=== PATIENT | female | born 1975 | race American Indian/Alaskan Native ===

== ENCOUNTER 2016-07-30 01:45 | Emergency (ER) | payer MEDICAID ==
[2016-07-30 02:12] VITALS: TEMP 97.6
--- NOTE | 2016-07-30 02:38 | C.PDOC ---
History Of Present Illness Patient is a 40 year old female who presents to the ER with a complaint of head pressure that began earlier today. Patient denies any chest pain or shortness of breath. Chief Complaint (Nursing): High Blood Pressure History Per: Patient History/Exam Limitations: no limitations Onset/Duration Of Symptoms: Hrs Current Symptoms Are (Timing): Still Present Associated Symptoms: denies: Chest Pain Past Medical History Reviewed: Historical Data, Nursing Documentation, Vital Signs Vital Signs: Last Vital Signs Temp 97.6 F 07/30/16 02:06 Pulse 84 07/30/16 02:06 Resp 18 07/30/16 02:06 BP 168/128 H 07/30/16 02:06 Pulse Ox 97 07/30/16 02:46 - Medical History PMH: Asthma (as a child she states), HTN, Hyperthyroidism (thyroidectomy) Family History: States: Unknown Family Hx - Social History Hx Tobacco Use: No Hx Alcohol Use: No Hx Substance Use: No - Immunization History Hx Tetanus Toxoid Vaccination: Yes Hx Influenza Vaccination: No Hx Pneumococcal Vaccination: No Review Of Systems Constitutional: Negative for: Fever, Chills Cardiovascular: Negative for: Chest Pain, Palpitations Respiratory: Negative for: Shortness of Breath Gastrointestinal: Negative for: Nausea, Vomiting Physical Exam - Physical Exam Appears: Well, Non-toxic Skin: Normal Color, Warm, Dry Head: Atraumatic, Normacephalic, Other (Head pressure) Eye(s): bilateral: Normal Inspection Oral Mucosa: Moist Neck: Normal, Normal ROM Cardiovascular: Rhythm Regular Respiratory: Normal Breath Sounds, No Accessory Muscle Use, No Rales, No Rhonchi , No Wheezing Gastrointestinal/Abdominal: Soft, No Tenderness, No Distention, No Guarding, No Rebound Neurological/Psych: Oriented x3, Normal Speech, Normal Cognition ED Course And Treatment ECG: Interpreted By Me (No st/t changes, no abnormalities), Viewed By Me ECG Rhythm: Sinus Rhythm (81) O2 Sat by Pulse Oximetry: 97 (Room air) Pulse Ox Interpretation: Normal Progress Note: EKG ordered and reviewed. Disposition - Disposition Referrals: [facility] [Outside] Disposition: HOME/ ROUTINE Disposition Time: 02:37 Condition: STABLE Instructions: Low Sodium Diet (ED), Hypertension (ED) - Clinical Impression Clinical Impression: Hypertension - Scribe Statement The provider has reviewed the documentation as recorded by the Scribe Daron Naik All medical record entries made by the Savanna were at my direction and personally dictated by me. I have reviewed the chart and agree that the record accurately reflects my personal performance of the history, physical exam, medical decision making, and the department course for this patient. I have also personally directed, reviewed, and agree with the discharge instructions and disposition.
--- NOTE | 2016-07-30 02:38 | C.PDOC ---
Chief Complaint (Nursing): High Blood Pressure Past Medical History Vital Signs: Last Vital Signs Temp 97.6 F 07/30/16 02:06 Pulse 84 07/30/16 02:06 Resp 18 07/30/16 02:06 BP 168/128 H 07/30/16 02:06 Pulse Ox 97 07/30/16 02:06 - Medical History PMH: Asthma (as a child she states), HTN, Hyperthyroidism (thyroidectomy) Denies: Chronic Kidney Disease Family History: States: Unknown Family Hx - Social History Hx Tobacco Use: No Hx Alcohol Use: No Hx Substance Use: No - Immunization History Hx Tetanus Toxoid Vaccination: Yes Hx Influenza Vaccination: No Hx Pneumococcal Vaccination: No ED Course And Treatment O2 Sat by Pulse Oximetry: 97 Disposition Counseled Patient/Family Regarding: Diagnosis - Disposition Referrals: at [facility] [Outside] Disposition: HOME/ ROUTINE Disposition Time: 02:37 Condition: STABLE Instructions: Hypertension (ED), Low Sodium Diet (ED) - POA Present On Arrival: None - Clinical Impression Clinical Impression: Hypertension
[2016-07-30 03:01] VITALS: BP 151/98; PULSE 96; RESP 16; O2SAT 98
--- NOTE | 2016-07-31 20:02 | CARD ---
APPROVED REPORT EKG Measurement Heart [id number] [place] 196P59 [id number] <Conclusion> Normal sinus rhythm Nonspecific T wave abnormality Abnormal ECG
== END 2016-07-30 03:59 | disposition home or self-care (01) ==
LOC: C.ER 01:45
DX: I10 Essential (primary) hypertension (principal)

== ENCOUNTER 2016-08-06 20:14 | Emergency (ER) | payer MEDICAID ==
[2016-08-06 20:28] VITALS: RESP 20
[2016-08-06 20:55] LABS: BASO # 0.1 K/uL (0.0-0.2); BASO % 1.3 % (0.0-2.0); EOS # 0.1 K/uL (0.0-0.7); EOS % 1.9 % (0.0-4.0); HEMATOCRIT 35.8 % (34.0-47.0); LYMPH # 1.9 K/uL (1.0-4.3); LYMPH % 38.4 % (20.0-40.0); MEAN CELL VOLUME 85.4 fL (81.0-99.0); MEAN CORPUSCULAR HEMOGLOBIN 28.6 pg (27.0-31.0); MEAN CORPUSCULAR HGB CONC 33.6 g/dL (33.0-37.0); MONO # 0.3 K/uL (0.0-0.8); MONO % 6.4 % (0.0-10.0); NRBC % 0.1 % (0.0-2.0); RED CELL DISTRIBUTION WIDTH 15.3 % (11.5-14.5); WHITE BLOOD COUNT 4.8 K/uL (4.8-10.8)
[2016-08-06 20:59] LABS: RBC URINE 2 /hpf (0-3); TRANSITIONAL EPITHIAL < 1 /hpf (0-3); URINE BACTERIA FEW (<OCC); URINE BILIRUBIN NEGATIVE (NEGATIVE); URINE BLOOD NEGATIVE (NEGATIVE); URINE COLOR Yellow (YELLOW); URINE GLUCOSE (UA) NORMAL (Normal); URINE KETONE NEGATIVE (NEGATIVE); URINE LEUKOCYTE ESTERASE 1+ Leu/uL (Negative); URINE PROTEIN 1+ mg/dL (NEGATIVE); URINE UROBILINOGEN NORMAL mg/dL (0.2-1.0); WBC URINE 16 /hpf (0-5)
[2016-08-06 21:29] LABS: CHLORIDE 95 mmol/L (98-107); SODIUM 138 mmol/L (132-148)
[2016-08-06 21:30] LABS: POTASSIUM 3.9 mmol/L (3.6-5.2)
[2016-08-06 21:32] LABS: ALB/GLOB RATIO 1.1 (1.0-2.1); ALKALINE PHOSPHATASE 54 U/L (38-126); AST/SGOT 57 U/L (14-36); BILIRUBIN,TOTAL 0.8 mg/dL (0.2-1.3); BLOOD UREA NITROGEN 9 mg/dL (7-17); CARBON DIOXIDE 29 mmol/L (22-30); GFR AFRICAN-AMERICAN 55; TOTAL PROTEIN 8.5 g/dL (6.3-8.3)
[2016-08-06 21:33] LABS: ALCOHOL SERUM < 10 mg/dl (0-10); ALT/SGPT 21 U/L (9-52); CALCIUM 8.4 mg/dl (8.6-10.4); GLUCOSE,RANDOM 92 mg/dL (65-105)
--- NOTE | 2016-08-06 22:10 | C.PDOC ---
History Of Present Illness 40 year old patient, with a history of hypertension, presents to the ED complaining of "hot flashes" for the past few hours prior to arrival. Patient denies any substance use, any new medications, chest pain, shortness of breath or vomiting. Time Seen by Provider: 08/06/16 20:26 Chief Complaint (Nursing): Dizziness/Lightheaded History Per: Patient History/Exam Limitations: no limitations Onset/Duration Of Symptoms: Hrs (few hours prior to arrival) Current Symptoms Are (Timing): Still Present Recent travel outside of the [place]: No Past Medical History Reviewed: Historical Data, Nursing Documentation, Vital Signs Vital Signs: Last Vital Signs Temp 97.9 F 08/06/16 22:20 Pulse 76 08/06/16 22:20 Resp 20 08/06/16 22:20 BP 121/77 08/06/16 22:20 Pulse Ox 98 08/06/16 22:20 - Medical History PMH: Asthma (as a child she states), HTN, Hyperthyroidism (thyroidectomy), Hypothyroidism (thyroidectomy 05/2016) Family History: States: Unknown Family Hx - Social History Hx Tobacco Use: No Hx Alcohol Use: No Hx Substance Use: No - Immunization History Hx Tetanus Toxoid Vaccination: Yes Hx Influenza Vaccination: No Hx Pneumococcal Vaccination: No Review Of Systems Except As Marked, All Systems Reviewed And Found Negative. Constitutional: Positive for: Other ("hot flashes") Cardiovascular: Negative for: Chest Pain Respiratory: Negative for: Shortness of Breath Gastrointestinal: Negative for: Vomiting Psych: Negative for: Suicidal ideation Physical Exam - Physical Exam Appears: Non-toxic, No Acute Distress, Other (flat affect, somnolent) Skin: Warm, Dry Head: Atraumatic, Normacephalic Neck: Normal ROM, Supple Chest: Symmetrical Cardiovascular: Rhythm Regular Respiratory: Normal Breath Sounds, No Rales, No Rhonchi, No Wheezing Gastrointestinal/Abdominal: Soft, No Tenderness Back: Normal Inspection, No CVA Tenderness Extremity: Normal ROM Neurological/Psych: Oriented x3 Gait: Steady ED Course And Treatment - Laboratory Results Result Diagrams: 08/06/16 20:49 08/06/16 20:49 Lab Interpretation: Normal (ua neg.) Urine POC: Negative ECG: Interpreted By Me ECG Rhythm: Sinus Rhythm ECG Interpretation: Normal Rate From EC (bpm) O2 Sat by Pulse Oximetry: 100 (RA) Pulse Ox Interpretation: Normal Progress Note: Plan: EKG, Labs Medical Decision Making Medical Decision Making: confusing presentation as pt has a myriad of complaints but asymptomatic on arrival similar presentations in the past. Though U-tox and ETOH there may be other non-detectable substances offering an altered sensorium. Disposition Doctor Will See Patient In The: Office Counseled Patient/Family Regarding: Studies Performed, Diagnosis - Disposition Referrals: Mikey Reed MD [Staff Provider] - Disposition: HOME/ ROUTINE Disposition Time: 22:09 Condition: GOOD Additional Instructions: follow-up as an outpatient with Dr. Reed as needed Normal workup today. Instructions: Fatigue (ED) - Clinical Impression Clinical Impression: Malaise and fatigue - Scribe Statement The provider has reviewed the documentation as recorded by the Scribe Floresita Bush Provider Attestation: All medical record entries made by the Scribe were at my direction and personally dictated by me. I have reviewed the chart and agree that the record accurately reflects my personal performance of the history, physical exam, medical decision making, and the department course for this patient. I have also personally directed, reviewed, and agree with the discharge instructions and disposition.
[2016-08-06 22:22] VITALS: BP 121/77; PULSE 76; TEMP 97.9
[2016-08-07 01:58] VITALS: O2SAT 100
== END 2016-08-06 22:50 | disposition home or self-care (01) ==
LOC: C.ER 20:14
DX: R53.81 Other malaise (principal); R53.83 Other fatigue

== ENCOUNTER 2016-08-09 22:42 | Emergency (ER) | payer MEDICAID ==
[2016-08-09] MEDS ORDERED: Sodium Chloride 0.9% 1,000 ML IV ONE (23:12)
--- NOTE | 2016-08-09 23:12 | C.PDOC ---
History Of Present Illness pt presents with some palpitations after eating rodriguez. Pt had thyroidectomy in May and just finished her radiation therapy end of June. Patient felle tired and lack of energy Time Seen by Provider: 08/09/16 23:11 Chief Complaint (Nursing): Palpitations History Per: Patient History/Exam Limitations: no limitations Onset/Duration Of Symptoms: Hrs Current Symptoms Are (Timing): Gone Associated Symptoms: Other (palpitations). denies: Chest Pain Quality Of Symptoms: Asymptomatic Severity: Mild Pain Scale Rating Of: 2 Exacerbating Factor(s): Pos: None Recent travel outside of the [place]: No Additional History Per: Patient Past Medical History Reviewed: Historical Data, Nursing Documentation, Vital Signs Vital Signs: Last Vital Signs Temp 98.3 F 08/10/16 04:02 Pulse 63 08/10/16 04:02 Resp 15 08/10/16 04:02 BP 129/85 08/10/16 04:02 Pulse Ox 96 08/10/16 04:02 - Medical History PMH: Asthma (as a child she states), HTN, Hyperthyroidism (thyroidectomy), Hypothyroidism (thyroidectomy 05/2016) Denies: Chronic Kidney Disease Family History: States: No Known Family Hx - Social History Hx Tobacco Use: No Hx Alcohol Use: No Hx Substance Use: No - Immunization History Hx Tetanus Toxoid Vaccination: Yes Hx Influenza Vaccination: No Hx Pneumococcal Vaccination: No Review Of Systems Constitutional: Negative for: Fever, Chills ENT: Negative for: Throat Pain Cardiovascular: Positive for: Palpitations. Negative for: Chest Pain Respiratory: Negative for: Shortness of Breath Gastrointestinal: Negative for: Nausea, Vomiting, Abdominal Pain Genitourinary: Negative for: Dysuria Musculoskeletal: Negative for: Back Pain Skin: Negative for: Rash, Lesions, Jaundice Neurological: Negative for: Weakness Psych: Negative for: Anxiety Physical Exam - Physical Exam Appears: Non-toxic, No Acute Distress Skin: Warm, Dry Eye(s): bilateral: Normal Inspection Oral Mucosa: Moist Neck: Supple Chest: Symmetrical Cardiovascular: Rhythm Regular Respiratory: No Rales, No Rhonchi, No Wheezing Gastrointestinal/Abdominal: Soft, No Tenderness, No Distention Back: Normal Inspection Extremity: Bilateral: Atraumatic, Normal Color And Temperature Neurological/Psych: Oriented x3, Normal Speech, Normal Cognition Gait: Steady ED Course And Treatment - Laboratory Results Result Diagrams: 08/09/16 23:32 08/09/16 23:32 ECG: Interpreted By Me, Viewed By Me ECG Rhythm: Sinus Rhythm (57), Nonspecific Changes O2 Sat by Pulse Oximetry: 97 Pulse Ox Interpretation: Normal Progress Note: blood work , ivf,. tsh Reevaluation Time: 04:53 Reassessment Condition: Improved Medical Decision Making Medical Decision Making: Upon provider reevaluation patient is feeling better, is medically stable, and requires no further treatment in the ED at this time. Patient will be discharged home . Counseling was provided and all questions were answered regarding diagnosis and need for follow up with Dr Reed and her check out cashier. There is agreement to discharge plan. Return if symptoms persist or worsen. Disposition Counseled Patient/Family Regarding: Studies Performed, Diagnosis, Need For Followup - Disposition Referrals: Mikey Reed MD [Staff Provider] - Disposition: HOME/ ROUTINE Disposition Time: 04:55 Condition: FAIR Instructions: Hypothyroidism (ED) - Clinical Impression Clinical Impression: Hypothyroid
[2016-08-09 23:35] LABS: EOS # 0.1 K/uL (0.0-0.7); EOS % 1.3 % (0.0-4.0); HEMATOCRIT 33.5 % (34.0-47.0); LYMPH # 1.4 K/uL (1.0-4.3); LYMPH % 33.5 % (20.0-40.0); MEAN CELL VOLUME 86.1 fL (81.0-99.0); MEAN CORPUSCULAR HGB CONC 32.5 g/dL (33.0-37.0); MEAN PLATELET VOLUME 7.8 fL (7.2-11.7); MONO # 0.3 K/uL (0.0-0.8); MONO % 7.2 % (0.0-10.0); RED CELL DISTRIBUTION WIDTH 15.7 % (11.5-14.5); WHITE BLOOD COUNT 4.1 K/uL (4.8-10.8)
[2016-08-09] MEDS ORDERED: Sodium Chloride 0.9% 1,000 ML ONE (23:35)
[2016-08-09 23:44] LABS: POTASSIUM 3.5 mmol/L (3.6-5.2)
[2016-08-09 23:46] LABS: ALB/GLOB RATIO 1.2 (1.0-2.1); BILIRUBIN,TOTAL 0.6 mg/dL (0.2-1.3); TOTAL PROTEIN 7.7 g/dL (6.3-8.3)
[2016-08-09 23:47] LABS: CALCIUM 8.1 mg/dl (8.6-10.4)
[2016-08-10 00:17] LABS: THYROID STIMULATING HORMONE 61.2 mIU/L (0.46-4.68)
[2016-08-10 04:55] VITALS: O2SAT 97
[2016-08-10] MEDS ORDERED: Levothyroxine 150 MCG TAB PO STA (06:18)
[2016-08-10 06:28] VITALS: BP 126/78; PULSE 71; RESP 14; TEMP 97.8
--- NOTE | 2016-08-11 06:27 | CARD ---
APPROVED REPORT EKG Measurement Heart [id number] [place] 182P6 [id number] <Conclusion> Sinus bradycardia Otherwise normal ECG
== END 2016-08-10 06:30 | disposition home or self-care (01) ==
LOC: C.ER 22:42
DX: E03.9 Hypothyroidism, unspecified (principal)
CPT/HCPCS: 80053; 84443; 85025; 93005; 96360; 99285; J7040

== ENCOUNTER 2017-05-18 00:02 | Emergency (ER) | payer MEDICAID ==
[2017-05-18 00:07] VITALS: BMI 34.2
--- NOTE | 2017-05-18 00:33 | C.PDOC ---
History Of Present Illness Patient presents to ED with complaints of shortness of breath and headache. Patient states she missed her thyroid medication. Patient denies fever, nausea, vomiting or diarrhea. Time Seen by Provider: 05/18/17 00:33 Chief Complaint (Nursing): Shortness Of Breath History Per: Patient History/Exam Limitations: no limitations Onset/Duration Of Symptoms: Hrs Current Symptoms Are (Timing): Still Present Quality: Other Current Respiratory Medications: See Home Med List Severity: None Associated Symptoms: Other (Shortness of breath and headache). denies: Fever, Chills, Chest Pain Reports Recently: Seen In ED, Treated By A Physician Recent travel outside of the [place]: No Additional History Per: Family Past Medical History Reviewed: Historical Data, Nursing Documentation, Vital Signs Vital Signs: Last Vital Signs Temp 97.6 F 05/18/17 00:14 Pulse 92 H 05/18/17 03:56 Resp 23 05/18/17 03:56 BP 146/93 H 05/18/17 03:56 Pulse Ox 98 05/18/17 03:56 - Medical History PMH: Asthma (as a child she states), HTN, Hyperthyroidism (thyroidectomy), Hypothyroidism (thyroidectomy 05/2016) Surgical History: No Surg Hx Family History: States: No Known Family Hx - Social History Hx Tobacco Use: No Hx Alcohol Use: No Hx Substance Use: No - Immunization History Hx Tetanus Toxoid Vaccination: Yes Hx Influenza Vaccination: No Hx Pneumococcal Vaccination: No Review Of Systems Constitutional: Negative for: Fever, Chills Respiratory: Positive for: Shortness of Breath Gastrointestinal: Negative for: Nausea, Vomiting, Diarrhea Neurological: Negative for: Weakness, Numbness Psych: Negative for: Depression, Suicidal ideation Physical Exam - Physical Exam Appears: Non-toxic, Other (Awake and alert) Skin: Warm, Dry Head: Normacephalic Eye(s): bilateral: Normal Inspection Oral Mucosa: Moist Neck: Supple, Other (Thyroidectomy scar) Chest: Symmetrical, No Tenderness Cardiovascular: Rhythm Regular Respiratory: No Rales, No Rhonchi, No Wheezing Gastrointestinal/Abdominal: Soft, No Tenderness Neurological/Psych: Oriented x3, Normal Speech, Normal Cognition ED Course And Treatment - Laboratory Results Result Diagrams: 05/18/17 03:02 05/18/17 03:02 ECG: Interpreted By Me, Viewed By Me ECG Rhythm: Sinus Rhythm (68), Nonspecific Changes O2 Sat by Pulse Oximetry: 100 (Room air) Pulse Ox Interpretation: Normal Progress Note: Ordered EKG, blood work and flu AB swab Disposition Counseled Patient/Family Regarding: Studies Performed, Diagnosis, Need For Followup - Disposition Referrals: Mikey Reed MD [Staff Provider] - Disposition: HOME/ ROUTINE Disposition Time: 00:33 Condition: FAIR Instructions: Hypocalcemia (ED) Forms: [employer] (Serbian) - Clinical Impression Clinical Impression: Hypocalcemia - Scribe Statement The provider has reviewed the documentation as recorded by the Scribyohan Samson All medical record entries made by the Scribe were at my direction and personally dictated by me. I have reviewed the chart and agree that the record accurately reflects my personal performance of the history, physical exam, medical decision making, and the department course for this patient. I have also personally directed, reviewed, and agree with the discharge instructions and disposition.
[2017-05-18 03:08] LABS: BASO # 0.1 K/uL (0.0-0.2); BASO % 2.1 % (0.0-2.0); EOS # 0.1 K/uL (0.0-0.7); EOS % 1.6 % (0.0-4.0); LYMPH # 2.1 K/uL (1.0-4.3); LYMPH % 39.5 % (20.0-40.0); MEAN CELL VOLUME 85.2 fL (81.0-99.0); MEAN CORPUSCULAR HEMOGLOBIN 29.2 pg (27.0-31.0); MEAN CORPUSCULAR HGB CONC 34.2 g/dL (33.0-37.0); MEAN PLATELET VOLUME 7.8 fL (7.2-11.7); MONO # 0.3 K/uL (0.0-0.8); MONO % 6.3 % (0.0-10.0); NEUT # 2.6 K/uL (1.8-7.0); NEUT % 50.5 % (50.0-75.0); NRBC % 0.1 % (0.0-2.0); RBC 4.12 Mil/uL (3.80-5.20); RED CELL DISTRIBUTION WIDTH 13.5 % (11.5-14.5); WHITE BLOOD COUNT 5.2 K/uL (4.8-10.8)
[2017-05-18 03:21] LABS: CALCIUM 6.9 mg/dl (8.6-10.4)
[2017-05-18 04:16] VITALS: O2SAT 100
[2017-05-18 05:03] VITALS: BP 154/70; PULSE 75; RESP 20; TEMP 97.7
== END 2017-05-18 05:43 | disposition home or self-care (01) ==
LOC: C.ER 00:02
DX: E83.51 Hypocalcemia (principal)

== ENCOUNTER 2017-05-29 17:10 | Emergency (ER) | payer MEDICAID ==
[2017-05-29 17:12] VITALS: BMI 34.2
[2017-05-29 17:14] VITALS: RESP 18; TEMP 98.3
[2017-05-29 17:51] LABS: BASO % 0.6 % (0.0-2.0); EOS % 0.9 % (0.0-4.0); LYMPH # 1.4 K/uL (1.0-4.3); LYMPH % 26.8 % (20.0-40.0); MEAN CELL VOLUME 84.1 fL (81.0-99.0); MEAN CORPUSCULAR HEMOGLOBIN 28.7 pg (27.0-31.0); MEAN CORPUSCULAR HGB CONC 34.1 g/dL (33.0-37.0); MEAN PLATELET VOLUME 7.8 fL (7.2-11.7); MONO # 0.3 K/uL (0.0-0.8); MONO % 6.1 % (0.0-10.0); NEUT # 3.4 K/uL (1.8-7.0); NEUT % 65.6 % (50.0-75.0); RBC 3.84 Mil/uL (3.80-5.20); RED CELL DISTRIBUTION WIDTH 13.5 % (11.5-14.5); WHITE BLOOD COUNT 5.1 K/uL (4.8-10.8)
--- NOTE | 2017-05-29 17:52 | C.PDOC ---
History Of Present Illness 41 y/o female brought to ED by EMS status post episode of lightheadedness, palpitations, trouble breathing, tingling and numbness to hand and feet prior to arrival. She has a history of hypothyroidism s/p thyroidectiomy. Patient states she was at home cooking with the oven and stove on when suddenly symptoms occurred, daughter was with her who called 911, At ED symptoms have subsided. Patient was seen at ED x10 days ago and diagnosed with Hypocalcemia, advised to take calcium supplements. Patient reports she took 2 extra calcium tablets today along with antibiotic for dental infection and thyroid medication. Patient is unsure if combination of medicine caused the episode. Patient currently denies any physical complaints at this time. Time Seen by Provider: 05/29/17 17:23 Chief Complaint (Nursing): Medical Clearance History Per: Patient, Family History/Exam Limitations: no limitations Onset/Duration Of Symptoms: Hrs Current Symptoms Are (Timing): Better Past Medical History Reviewed: Historical Data, Nursing Documentation, Vital Signs Vital Signs: Last Vital Signs Temp 98.3 F 05/29/17 17:13 Pulse 60 05/29/17 19:06 Resp 18 05/29/17 19:06 BP 148/91 H 05/29/17 19:06 Pulse Ox 98 05/29/17 19:28 - Medical History PMH: Asthma (as a child she states), HTN, Hyperthyroidism (thyroidectomy), Hypothyroidism (thyroidectomy 05/2016) Surgical History: No Surg Hx Family History: States: No Known Family Hx - Social History Hx Tobacco Use: No Hx Alcohol Use: No Hx Substance Use: No - Immunization History Hx Tetanus Toxoid Vaccination: Yes Hx Influenza Vaccination: No Hx Pneumococcal Vaccination: No Review Of Systems Constitutional: Negative for: Fever, Chills Cardiovascular: Positive for: Palpitations, Light Headedness. Negative for: Chest Pain Gastrointestinal: Negative for: Nausea, Vomiting Neurological: Positive for: Numbness Physical Exam - Physical Exam Appears: Non-toxic, No Acute Distress Skin: Warm, Dry, No Rash Head: Atraumatic, Normacephalic Eye(s): bilateral: Normal Inspection Oral Mucosa: Moist Neck: Normal ROM, Supple Cardiovascular: Rhythm Regular Respiratory: Normal Breath Sounds, No Rales, No Rhonchi, No Wheezing Gastrointestinal/Abdominal: Soft, No Tenderness, No Guarding, No Rebound Back: No CVA Tenderness Extremity: Normal ROM, Capillary Refill (<2 seconds) Neurological/Psych: Oriented x3, Normal Speech, Normal Cognition, Normal Motor, Normal Sensation Gait: Steady ED Course And Treatment - Laboratory Results Result Diagrams: 05/29/17 17:46 05/29/17 17:46 Lab Interpretation: Abnormal (BUN 21, Cr 1.5, Ca 7.2) ECG: Interpreted By Me, Viewed By Me ECG Rhythm: Sinus Rhythm ECG Interpretation: No Changes From Prior Rate From EC (bpm) O2 Sat by Pulse Oximetry: 98 (RA) Pulse Ox Interpretation: Normal - Physician Consult Information Time Consulting Physician Contacted: 19:25 Physician Contacted: Mikey Reed Outcome Of Conversation: He will follow up with the patient in the office in the morning. Disposition Counseled Patient/Family Regarding: Studies Performed, Diagnosis, Need For Followup - Disposition Referrals: Mikey Reed MD [Staff Provider] - Disposition: HOME/ ROUTINE Disposition Time: 19:30 Condition: IMPROVED Instructions: Lightheadedness (ED), Hypocalcemia (ED) Forms: [employer] (Pakistani) - Clinical Impression Clinical Impression: Lightheadedness, Hypocalcemia - Scribe Statement The provider has reviewed the documentation as recorded by the Scribe Marybeth Salazar All medical record entries made by the Scribe were at my direction and personally dictated by me. I have reviewed the chart and agree that the record accurately reflects my personal performance of the history, physical exam, medical decision making, and the department course for this patient. I have also personally directed, reviewed, and agree with the discharge instructions and disposition.
[2017-05-29 18:02] LABS: ALBUMIN 3.9 g/dL (3.5-5.0); CALCIUM 7.2 mg/dl (8.6-10.4); MAGNESIUM 1.7 mg/dL (1.6-2.3)
[2017-05-29 19:07] VITALS: BP 148/91; PULSE 60
[2017-05-29 19:25] VITALS: O2SAT 98
--- NOTE | 2017-05-30 12:05 | CARD ---
APPROVED REPORT EKG Measurement Heart [id number] [place] 204P38 [id number] <Conclusion> Normal sinus rhythm Cannot rule out Anterior infarct, age undetermined Abnormal ECG
== END 2017-05-29 19:52 | disposition home or self-care (01) ==
LOC: C.ER 17:10
DX: R42 Dizziness and giddiness (principal); E83.51 Hypocalcemia

== ENCOUNTER 2017-06-06 02:25 | Emergency (ER) | payer MEDICAID ==
[2017-06-06 02:25] VITALS: BMI 34.2
--- NOTE | 2017-06-06 02:55 | C.PDOC ---
History Of Present Illness 41 year old female with surgical history of total thyroidectomy, who presents to the emergency department with sudden onset of palpations associated with anxiety. Patient was evaluated in ED 2 weeks ago for hypercalcemia. Denied any chest pain or shortness of breath. PMD: Mikey Reed MD Time Seen by Provider: 06/06/17 02:50 Chief Complaint (Nursing): Dizziness/Lightheaded History Per: Patient History/Exam Limitations: no limitations Onset/Duration Of Symptoms: Sudden Onset Current Symptoms Are (Timing): Still Present Past Medical History Reviewed: Historical Data, Nursing Documentation, Vital Signs Vital Signs: Last Vital Signs Temp 98.8 F 06/06/17 03:37 Pulse 87 06/06/17 05:26 Resp 20 06/06/17 05:26 BP 153/102 H 06/06/17 05:26 Pulse Ox 99 06/06/17 05:59 - Medical History PMH: Asthma (as a child she states), HTN, Hyperthyroidism (thyroidectomy), Hypothyroidism (thyroidectomy 05/2016) Denies: Chronic Kidney Disease Surgical History: Denies: No Surg Hx Other Surgeries: total thyroidectomy Family History: States: Unknown Family Hx - Social History Hx Tobacco Use: No Hx Alcohol Use: No Hx Substance Use: No - Immunization History Hx Tetanus Toxoid Vaccination: No Hx Influenza Vaccination: No Hx Pneumococcal Vaccination: No Review Of Systems Cardiovascular: Positive for: Palpitations. Negative for: Chest Pain Respiratory: Negative for: Shortness of Breath Psych: Positive for: Anxiety Physical Exam - Physical Exam Appears: Other (anxious) Skin: Normal Color, No Rash Head: Atraumatic Nose: Normal Oral Mucosa: Moist Throat: Normal Neck: Normal ROM Cardiovascular: Rhythm Regular Respiratory: No Decreased Breath Sounds, No Rales, No Rhonchi, No Wheezing Gastrointestinal/Abdominal: Normal Exam, Soft, No Tenderness Back: Normal Inspection, No CVA Tenderness, No Vertebral Tenderness Extremity: Normal ROM (upper/lower), No Tenderness, No Pedal Edema Neurological/Psych: Oriented x3, Normal Speech, Normal Cognition ED Course And Treatment - Laboratory Results Result Diagrams: 06/06/17 03:58 06/06/17 03:58 ECG: Interpreted By Me, Viewed By Me ECG Rhythm: Sinus Tachycardia (107), Nonspecific Changes O2 Sat by Pulse Oximetry: 99 (RA) Pulse Ox Interpretation: Normal Progress Note: 5:30 AM patient refused to take either catapress or labetolol. Understands that her blood pressure is elevated and that there are risks including, stroke and . Wants to follow up with her doctor Reevaluation Time: 06:09 Reassessment Condition: Improved Medical Decision Making Medical Decision Making: Initial Impression: Anxiety Initial Plan: * EKG * CMP * Drug screen, urine * Magnesium * TSH * Troponin I * CBC * Beta-HCG Scribe Attestation: Documented by Astrid Rousseau, acting as a scribe for Areli Aldridge MD. Provider Scribe Attestation: All medical record entries made by the Scribe were at my direction and personally dictated by me. I have reviewed the chart and agree that the record accurately reflects my personal performance of the history, physical exam, medical decision making, and the department course for this patient. I have also personally directed, reviewed, and agree with the discharge instructions and disposition. Disposition Counseled Patient/Family Regarding: Studies Performed, Diagnosis, Need For Followup - Disposition Referrals: Mikey Reed MD [Staff Provider] - Disposition: HOME/ ROUTINE Disposition Time: 02:50 Condition: FAIR Additional Instructions: please return if symptoms recur Instructions: Palpitations (ED), Hypothyroidism (ED), Hypocalcemia (ED) Forms: [employer] (Turkish) - Clinical Impression Clinical Impression: Palpitations, Hypocalcemia, Hypothyroid
[2017-06-06 04:01] LABS: BASO % 0.6 % (0.0-2.0); EOS % 0.2 % (0.0-4.0); LYMPH # 1.1 K/uL (1.0-4.3); LYMPH % 17.8 % (20.0-40.0); MEAN CELL VOLUME 84.4 fL (81.0-99.0); MEAN CORPUSCULAR HGB CONC 35.6 g/dL (33.0-37.0); MEAN PLATELET VOLUME 7.8 fL (7.2-11.7); MONO # 0.3 K/uL (0.0-0.8); MONO % 4.4 % (0.0-10.0); NEUT # 4.9 K/uL (1.8-7.0); RBC 3.99 Mil/uL (3.80-5.20); RED CELL DISTRIBUTION WIDTH 13.6 % (11.5-14.5); WHITE BLOOD COUNT 6.4 K/uL (4.8-10.8)
[2017-06-06 04:16] LABS: BARBITURATES, UR NEGATIVE (NEGATIVE); BENZODIAZEPINES, UR NEGATIVE (NEGATIVE); OPIATES, UR NEGATIVE (NEGATIVE); PHENCYCLIDINE, UR NEGATIVE (NEGATIVE)
[2017-06-06 06:25] LABS: ALB/GLOB RATIO 1.1 (1.0-2.1); ALBUMIN 4.3 g/dL (3.5-5.0); ALT/SGPT 22 U/L (9-52); AST/SGOT 23 U/L (14-36); BLOOD UREA NITROGEN 15 mg/dL (7-17); CALCIUM 8.3 mg/dl (8.6-10.4); GFR AFRICAN-AMERICAN > 60; GFR NON-AFRICAN AMERICAN 50; MAGNESIUM 1.8 mg/dL (1.6-2.3)
[2017-06-06 06:27] VITALS: BP 148/94; PULSE 96; RESP 16; TEMP 98.4; O2SAT 100
--- NOTE | 2017-06-06 20:55 | CARD ---
APPROVED REPORT EKG Measurement Heart [id number] [place] 180P55 [id number] <Conclusion> Sinus tachycardia Possible Left atrial enlargement Borderline ECG
== END 2017-06-06 06:32 | disposition home or self-care (01) ==
LOC: C.ER 02:25
DX: R00.2 Palpitations (principal); E03.9 Hypothyroidism, unspecified; E83.51 Hypocalcemia

== ENCOUNTER 2017-10-14 12:41 | Emergency (ER) | payer MEDICAID ==
[2017-10-14 12:41] VITALS: BMI 36.1
[2017-10-14 12:53] VITALS: RESP 18
[2017-10-14] MEDS ORDERED: Lactated Ringer's 1,000 ML IVB STA (13:22)
[2017-10-14 13:41] LABS: SQUAMOUS EPITHIAL 1 /hpf (0-5); URINE BILIRUBIN NEGATIVE (NEGATIVE); URINE BLOOD NEGATIVE (NEGATIVE); URINE CLARITY Clear (Clear); URINE COLOR Straw (YELLOW); URINE GLUCOSE (UA) NORMAL (Normal); URINE LEUKOCYTE ESTERASE NEG Leu/uL (Negative); URINE PROTEIN 1+ mg/dL (NEGATIVE); URINE UROBILINOGEN NORMAL mg/dL (0.2-1.0)
[2017-10-14 14:00] LABS: BASO % 0.8 % (0.0-2.0); EOS # 0.1 K/uL (0.0-0.7); EOS % 1.3 % (0.0-4.0); HEMOGLOBIN 12.2 g/dL (11.0-16.0); LYMPH # 1.3 K/uL (1.0-4.3); MEAN CELL VOLUME 84.9 fL (81.0-99.0); MEAN CORPUSCULAR HEMOGLOBIN 29.5 pg (27.0-31.0); MEAN CORPUSCULAR HGB CONC 34.7 g/dL (33.0-37.0); MEAN PLATELET VOLUME 7.6 fL (7.2-11.7); MONO # 0.3 K/uL (0.0-0.8); MONO % 5.9 % (0.0-10.0); NRBC % 0.1 % (0.0-2.0); RBC 4.14 Mil/uL (3.80-5.20); RED CELL DISTRIBUTION WIDTH 13.1 % (11.5-14.5); WHITE BLOOD COUNT 5.7 K/uL (4.8-10.8)
[2017-10-14 14:07] VITALS: O2SAT 100
[2017-10-14 14:17] LABS: ALB/GLOB RATIO 0.9 (1.0-2.1); ALBUMIN 4.3 g/dL (3.5-5.0); CALCIUM 8.3 mg/dl (8.6-10.4)
[2017-10-14 14:38] LABS: FREE T4 1.64 ng/dL (0.78-2.19)
--- NOTE | 2017-10-14 15:06 | C.PDOC ---
History Of Present Illness Pt c/o malaise. She states she had left leg muscle cramp today and tingling in feet. Time Seen by Provider: 10/14/17 13:08 Chief Complaint (Nursing): Dizziness/Lightheaded History Per: Patient Onset/Duration Of Symptoms: Days (few) Current Symptoms Are (Timing): Better Current Symptoms: Malaise Fall Associated With With Symptoms: No Severity: Moderate Additional History Per: Prior Records - Symptoms Of CVA Recent Head Trauma: No Past Medical History Reviewed: Historical Data, Nursing Documentation, Vital Signs Vital Signs: Last Vital Signs Temp 98.8 F 10/14/17 12:48 Pulse 61 10/14/17 14:06 Resp 18 10/14/17 14:06 BP 158/95 H 10/14/17 14:06 Pulse Ox 100 10/14/17 14:06 - Medical History PMH: Asthma (as a child she states), HTN, Hypothyroidism (thyroidectomy 2016) Family History: States: Unknown Family Hx - Social History Hx Tobacco Use: No Hx Alcohol Use: No Hx Substance Use: No - Immunization History Hx Tetanus Toxoid Vaccination: No Hx Influenza Vaccination: No Hx Pneumococcal Vaccination: No Review Of Systems Except As Marked, All Systems Reviewed And Found Negative. Constitutional: Positive for: Malaise. Negative for: Fever Cardiovascular: Negative for: Chest Pain Respiratory: Negative for: Shortness of Breath Gastrointestinal: Negative for: Vomiting, Abdominal Pain, Diarrhea Genitourinary: Negative for: Dysuria Musculoskeletal: Negative for: Neck Pain Skin: Negative for: Rash Neurological: Negative for: Weakness, Seizures, Altered Mental Status, Headache Physical Exam - Physical Exam Appears: Non-toxic, No Acute Distress Skin: Normal Color, Warm, Dry, No Rash Head: Atraumatic, Normacephalic Eye(s): bilateral: Normal Inspection, PERRL, EOMI Neck: Normal ROM, Supple Cardiovascular: Rhythm Regular Respiratory: Normal Breath Sounds, No Accessory Muscle Use Gastrointestinal/Abdominal: Soft, No Tenderness Back: No CVA Tenderness Extremity: Normal ROM, No Pedal Edema, No Calf Tenderness Extremity: Bilateral: Normal Color And Temperature Pulses: Left Dorsalis Pedis: Normal, Right Dorsalis Pedis: Normal Neurological/Psych: Oriented x3, Normal Motor, Normal Sensation ED Course And Treatment - Laboratory Results Result Diagrams: 10/14/17 13:56 10/14/17 13:56 Lab Interpretation: No Acute Changes Urine POC: Negative O2 Sat by Pulse Oximetry: 100 Pulse Ox Interpretation: Normal Progress - Interventions Interventions:: Observation, Intravenous fluid - Data Reviewed Data Reviewed: Lab, Old records - Patient Status Patient status: Mostly improved - Continuity of Care Discussed patient case with:: Patient, ED Nurse - Patient Plan Patient Plan: Discharge, F/U with PCP, Continue present meds Disposition Counseled Patient/Family Regarding: Studies Performed, Diagnosis, Need For Followup - Disposition Referrals: Mikey Reed MD [Primary Care Provider] - Disposition: HOME/ ROUTINE Disposition Time: 15:08 Condition: IMPROVED Additional Instructions: Take a daily multivitamin. Drink plenty of fluids. Follow up with your doctor for further evaluation and treatment. Return to the ER if you develop worsening of symptoms or if you have any other concerns. Instructions: Leg Cramps (ED) Forms: [facility] ([place]), General Discharge Instructions - Clinical Impression Clinical Impression: Leg cramp, Malaise
[2017-10-14 15:20] VITALS: BP 156/89; PULSE 69; TEMP 98.1
== END 2017-10-14 15:35 | disposition home or self-care (01) ==
LOC: SUPCPDRO 12:41 → C.ER 12:41
DX: R53.81 Other malaise (principal); R25.2 Cramp and spasm
CPT/HCPCS: 80053; 81001; 83735; 84439; 84443; 85025; 96360; 99285; J7120

== ENCOUNTER 2018-08-09 01:39 | Emergency (ER) | payer MEDICAID ==
[2018-08-09 01:39] VITALS: BMI 36.1
[2018-08-09 01:52] VITALS: TEMP 97.6; O2SAT 100
[2018-08-09 03:37] LABS: BASO % 0.9 % (0.0-2.0); EOS # 0.1 K/uL (0.0-0.7); EOS % 1.7 % (0.0-4.0); HEMOGLOBIN 11.2 g/dL (11.0-16.0); LYMPH # 2.3 K/uL (1.0-4.3); LYMPH % 41.9 % (20.0-40.0); MEAN CELL VOLUME 85.2 fL (81.0-99.0); MEAN CORPUSCULAR HEMOGLOBIN 28.6 pg (27.0-31.0); MEAN CORPUSCULAR HGB CONC 33.6 g/dL (33.0-37.0); MONO # 0.5 K/uL (0.0-0.8); MONO % 8.5 % (0.0-10.0); NEUT # 2.6 K/uL (1.8-7.0); NRBC % 0.1 % (0.0-2.0); RBC 3.92 Mil/uL (3.80-5.20); RED CELL DISTRIBUTION WIDTH 14.3 % (11.5-14.5); WHITE BLOOD COUNT 5.5 K/uL (4.8-10.8)
[2018-08-09 03:49] LABS: ALB/GLOB RATIO 1.2 (1.0-2.1); ALBUMIN 4.3 g/dL (3.5-5.0); ALT/SGPT 13 U/L (9-52); AST/SGOT 25 U/L (14-36); BLOOD UREA NITROGEN 18 mg/dL (7-17); GFR NON-AFRICAN AMERICAN 33
--- NOTE | 2018-08-09 04:28 | C.PDOC ---
History Of Present Illness 42 y/o female pt presents to the ER c/o dizziness 1 hour after taking bactrim for her UTI x1 day. Pt also reported feeling a brief episode of discomfort to her lleft chest/ breast area which has now resolved. Pt denies chest pain, SOB, URI sx and fever. Time Seen by Provider: 08/09/18 02:51 Chief Complaint (Nursing): Dizziness/Lightheaded History Per: Patient History/Exam Limitations: no limitations Onset/Duration Of Symptoms: Days (x1) Current Symptoms Are (Timing): Still Present Past Medical History Reviewed: Historical Data, Nursing Documentation, Vital Signs Vital Signs: Last Vital Signs Temp 97.6 F 08/09/18 01:47 Pulse 56 L 08/09/18 01:47 Resp 20 08/09/18 01:47 BP 143/92 H 08/09/18 01:47 Pulse Ox 100 08/09/18 01:47 - Medical History PMH: Asthma (as a child she states), HTN, Hypothyroidism (thyroidectomy 0 05/2016) Comment Only: Hyperthyroidism (thyroidectomy) Family History: States: Unknown Family Hx - Social History Hx Tobacco Use: No Hx Alcohol Use: No Hx Substance Use: No - Immunization History Hx Tetanus Toxoid Vaccination: No Hx Influenza Vaccination: No Hx Pneumococcal Vaccination: No Review Of Systems Except As Marked, All Systems Reviewed And Found Negative. Constitutional: Negative for: Fever Cardiovascular: Negative for: Chest Pain Respiratory: Negative for: Shortness of Breath Musculoskeletal: Positive for: Other (discomfort on left side) Neurological: Positive for: Dizziness Physical Exam - Physical Exam Appears: Non-toxic, No Acute Distress Skin: Warm, Dry Eye(s): bilateral: Normal Inspection Nose: Normal Oral Mucosa: Moist Chest: Symmetrical Cardiovascular: Rhythm Regular Respiratory: Normal Breath Sounds Gastrointestinal/Abdominal: Soft, No Tenderness, No Distention, No Guarding, No Rebound Back: No CVA Tenderness Extremity: Normal ROM (x4) Neurological/Psych: Oriented x3, Normal Speech ED Course And Treatment - Laboratory Results Result Diagrams: 08/09/18 03:34 08/09/18 03:34 Lab Results: Troponin I < 0.0120 ng/mL (0.00-0.120) 08/09/18 03:34 Total Bilirubin 0.4 mg/dL (0.2-1.3) 08/09/18 03:34 AST 25 U/L (14-36) 08/09/18 03:34 ALT 13 U/L (9-52) 08/09/18 03:34 Alkaline Phosphatase 86 U/L (38-126) 08/09/18 03:34 Total Protein 7.9 g/dL (6.3-8.3) 08/09/18 03:34 Albumin 4.3 g/dL (3.5-5.0) 08/09/18 03:34 Globulin 3.6 gm/dL (2.2-3.9) 08/09/18 03:34 Albumin/Globulin Ratio 1.2 (1.0-2.1) 08/09/18 03:34 ECG: Interpreted By Me, Viewed By Me ECG Rhythm: Sinus Bradycardia ECG Interpretation: Normal Rate From EC O2 Sat by Pulse Oximetry: 100 (RA) Pulse Ox Interpretation: Normal Progress Note: Plans: -- chem labs. -- blod work. All results are normal. Pt remained stable in NAD, labs, EKG all WNL. Symptoms are least likely to be cardiac in nature and will follow up with PMD Reassessment Condition: Improved Disposition Counseled Patient/Family Regarding: Diagnosis, Need For Followup - Disposition Disposition: HOSPITALIZED Disposition Time: 04:27 Condition: GOOD Additional Instructions: Please follow up with PMD Take medications as directed Return to ER if worse Instructions: Dizziness, Nonvertigo, (DC) Forms: [facility] ([place]) - POA Present On Arrival: Falls Or Trauma - Clinical Impression Clinical Impression: Dizziness, Nonspecific chest pain - PA / UPHOLSTERER LIMOUSINE AND HEARSE / Resident Statement / has reviewed & agrees with the documentation as recorded. - Scribe Statement The provider has reviewed the documentation as recorded by the Savanna Vann Do All medical record entries made by the Devinibyohan were at my direction and personally dictated by me. I have reviewed the chart and agree that the record accurately reflects my personal performance of the history, physical exam, medical decision making, and the department course for this patient. I have also personally directed, reviewed, and agree with the discharge instructions and disposition.
[2018-08-09 04:40] VITALS: RESP 18
[2018-08-09 04:42] VITALS: BP 130/88; PULSE 62
== END 2018-08-09 04:40 | disposition short-term general hospital (02) ==
LOC: C.ER 01:39
DX: R42 Dizziness and giddiness (principal); R07.9 Chest pain, unspecified